=== PATIENT | male | born 1990 | race Caucasian/White ===

== ENCOUNTER 2023-11-28 13:14 | Outpatient (CLI) | payer BC, SELFPAY ==
--- NOTE | ~2023-11-28 | XR_ITS ---
Clinical Indication: Diaphragmatic hernia PA and lateral views of the chest: Comparison: None Findings: The lungs are clear, without evidence of focal consolidation or pleural effusion. Cardiome diastinal silhouette is within normal limits. Bones and soft tissues are unremarkable. Impression: Normal chest. Reviewed, dictated and finalized at [facility]. Impression: Normal chest.
--- NOTE | ~2023-11-28 | XR_ITS ---
EXAMINATION: XR heel LT min 2V DATE: 11/28/2023 13:30 INDICATION: Left heel pain TECHNIQUE: Lateral and axial views of the left calcaneus were obtained. COMPARISON: None. FINDINGS: Bone alignment is normal. No fracture. Joint spaces appear relatively preserved. Small Achilles and p lantar calcaneal spurs. IMPRESSION: 1. Small left Achilles and plantar calcaneal spurs. Reviewed, dictated and finalized at location A.
== END 2023-11-28 13:15 ==
LOC: GOSHIMG 13:15
PROVIDERS: PCP Nurse Practitioner Family; Visit Provider Nurse Practitioner Family
DX: K44.9 Diaphragmatic hernia without obstruction or gangrene (principal); M79.672 Pain in left foot; M77.32 Calcaneal spur, left foot
CPT/HCPCS: 71046; 73650

== ENCOUNTER 2023-12-07 18:20 | Emergency (ER) | payer BC, SELFPAY ==
[2023-12-07 18:20] VITALS: BP 149/102; PULSE 100; RESP 16; TEMP 36.1; O2SAT 97
--- NOTE | 2023-12-07 18:49 | ED.GENADULT ---
HPI - General Adult General Chief complaint: Urogenital-Male Stated complaint: left testicle pain and swelling Time Seen by Provider: 12/07/23 18:47 Source: patient and family Mode of arrival: ambulatory Limitations: no limitations History of Present Illness HPI narrative: 33-year-old white male complained of left testicular pain for last 6 weeks on off and then constant since yesterday. Markedly worse when he is putting on his pants today just prior to admission in his left testicle. Complains of nausea without vomiting. He had similar pain back in June and lasted for 2 weeks. Patient saw the his primary care a week ago but this problem was not discussed. Otherwise patient is eating and drinking voiding and stooling fine no cough fever sore throat problems voiding or stooling or any other complaints. Related Data Allergies Allergy/AdvReac Type Severity Reaction Status Date / Time No Known Allergies Allergy Verified 11/28/23 12:10 Review of Systems Review of Systems: All systems reviewed & are unremarkable except as noted in HPI and below PMFSH Past Medical History Medical History Encounter for general adult medical examination with abnormal findings GERD (gastroesophageal reflux disease) History of hypertension Obesity with body mass index 30 or greater Surgical History Surgical History Hx of tonsillectomy Family History Family History (Updated 11/28/23 @ 12:46 by Bel Dye MA) Mother Hypertension Fibromyalgia Gum disease Depression Heart disease Cerebrovascular accident Father Hypertension Depression Heart disease Cerebrovascular accident Social History Social History (Updated 11/28/23 @ 12:49 by Bel Dye MA) Social History: Caffeine Coffee 1 cup Smoking status: Former smoker Tobacco type: cigarettes Substance use type: marijuana Living arrangements: with family Occupation/Education: occupation Additional occupation/education comments: construction Exam Narrative: White male With moderate distress. ?Head:? Normocephalic atraumatic.? Eyes conjunctiva pink sclera nonicteric.? Oropharynx is clear with moist mucous membranes no exudates.? Neck is supple no lymphadenopathy nontender full range of motion.? Back is nontender.? Chest nontender.? Lungs are clear without wheezes rales or rhonchi.? Heart is regular rate rhythm without murmurs gallops or rubs.? Abdomen soft and nontender no hepatosplenomegaly or masses no CVA tenderness no abdominal bruits.? genitalia normal penis left testicle is tender as is the epididymis. Right testicle is normal there is no inguinal hernias. He has bilateral cremaster reflexes . Extremities no cyanosis clubbing or edema.? Neurological she is alert and oriented x4 motor and sensory grossly intact.? Skin is warm and dry without lesions. normal penis. Left testicle tender epididymis Course Vital Signs Vital signs: Vital Signs Temperature 36.1 C L 12/07/23 18:20 Pulse Rate 100 12/07/23 18:20 Respiratory Rate 16 12/07/23 18:20 Blood Pressure 149/102 H 12/07/23 18:20 Pulse Oximetry 97 12/07/23 18:20 Oxygen Delivery Room Air 12/07/23 18:20 Temperature 36.1 C L 12/07/23 18:20 Pulse Rate 100 12/07/23 18:20 Respiratory Rate 16 12/07/23 18:20 Blood Pressure 149/102 H 12/07/23 18:20 Pulse Oximetry 97 12/07/23 18:20 Oxygen Delivery Room Air 12/07/23 18:20 Medical Decision Making MDM Narrative Medical decision making narrative: ? Patient placed in room: Six ? History and physical was performed. we have no ultrasound at this facility so patient needs to be transferred to rule out torsion. Independent Historian: External Source Review: Differential Dx includes but not limited to: epididymitis torsion Medications were Reviewed: Medications given: fen
[2023-12-07] MEDS: ONDANSETRON INJ 4 MG/2 ML VIAL IV PUSH (19:12)
[2023-12-07] MEDS: fentaNYL CITRATE INJ (*CRX) 100 MCG/2 ML VIAL 75 MCG IV PUSH (19:12)
[2023-12-07 19:18] VITALS: BP 158/104; PULSE 94; RESP 20; TEMP 36.1; O2SAT 98
[2023-12-07 19:43] LABS: Appearance Urine Clear (Clear); Bilirubin Urine Negative (Negative); Blood Urine Negative (Negative); Color Urine Yellow (Yellow); Glucose Urine UA Negative (Negative); Ketones Urine Negative (Negative); Leukocyte Esterase Ur Negative (Negative); Nitrate Urine Negative (Negative); Protein Urine Negative (Negative); Specific Grav Ur >= 1.030 (1.010-1.020); Urobilinogen Urine 0.2 mg/dL (0.2-1.0); pH Urine 5.5 (5.0-8.0)
[2023-12-07 19:45] LABS: Add Urine Microscopic? NO
[2023-12-07 19:50] VITALS: BP 125/94; PULSE 87; RESP 20; TEMP 36.8; O2SAT 98
--- NOTE | 2023-12-10 12:25 | PC.NURSE ---
FINAL URINE CULTURE RESULTS: NO GROWTH
== END 2023-12-07 19:50 | disposition short-term general hospital (02) ==
PROVIDERS: Emergency Provider Emergency Medicine
DX: N50.812 Left testicular pain (principal); F12.90 Cannabis use, unspecified, uncomplicated; Z87.891 Personal history of nicotine dependence
CPT/HCPCS: 81003; 87086; 96374; 96375; 99285; J2405; J3010